=== PATIENT | female | born 1930 | race Caucasian/White ===

== ENCOUNTER 2016-12-27 15:26 | Observation (INO) | payer MEDICARE ==
[~2016-12-27] VITALS: Ht 162.6 cm; Wt 89.1 kg
[~2016-12-27 15:26] MED LIST: ALDACTONE25 MG PO; ALEVE220 MG PO; AMBIEN10 MG PO; BAYER CHEWABLE81 MG PO; CORDARONE200 MG PO; COZAAR100 MG; ELIQUIS2.5 MG PO; GLIMEPIRIDE4 MG PO; GLUCOPHAGE500 MG PO; LASIX20 MG PO; LASIX40 MG PO; LEVOTHROID50 MCG PO; LIPITOR10 MG PO; LOPRESSOR25 MG PO; MOBIC7.5 MG PO; NORVASC10 MG PO; NORVASC5 MG PO; OMNICEF300 MG PO; PACERONE200 MG PO; PLAVIX75 MG PO; SYNTHROID75 MCG PO
[2016-12-27 16:15] LABS: BASOPHILS 0.3 % (0-2); EOSINOPHILS 0.7 % (0-7); HEMATOCRIT 39.4 % (36.0-48.0); HEMOGLOBIN 12.3 g/dL (12-16); IMMATURE GRANULOCYTES 0.5 % (0-5); MCH 28.7 pg (26.0-34.0); MCHC 31.2 g/dL (31.0-37.0); MCV 92.1 fL (80.0-100.0); MEAN PLATELET VOLUME 10.1 fL (7.4-10.4); MONOCYTES 8.4 % (2-11); NEUTROPHILS 79.1 % (40-80); PLATELET COUNT 232 10x3/uL (130-400); RBC 4.28 10x6/uL (4.00-5.40); RDW 13.7 % (11.5-14.5); WBC 9.3 10x3/uL (4.8-10.8)
[2016-12-27 16:42] LABS: ALBUMIN 3.7 g/dL (3.4-5.0); ALKALINE PHOSPHATASE 61 U/L (46-116); ALT (SGPT) 16 U/L (10-68); BILIRUBIN - TOTAL 0.49 mg/dL (0.2-1.3); CALC OSMOLALITY 293 mosm/kg (275-300); CALCIUM 8.9 mg/dL (8.5-10.1); CARBON DIOXIDE 26.4 mmol/L (21.0-32.0); CHLORIDE - SERUM 107 mmol/L (98-107); CREATININE - SERUM 1.4 mg/dL (0.6-1.3); GLUCOSE 169 mg/dL (74-106); POTASSIUM - SERUM 5.1 mmol/L (3.5-5.1); PROTEIN - SERUM 6.6 g/dL (6.4-8.2); SODIUM 143 mmol/L (136-145); UREA NITROGEN 26 mg/dL (7-18); eGFR NON AFRICAN AMERICAN 38 mL/min (90-120)
[2016-12-27 16:54] LABS: CKMB 1.4 U/L (0.0-3.6); CREATINE KINASE 64 UL (21-215); PRO BNP 1609 pg/mL (0-450); TROPONIN-I < 0.017 ng/mL (0.000-0.060)
[2016-12-27 21:07] VITALS: BP 189/58
--- NOTE | 2016-12-27 22:27 | NUR ---
HOME MEDICATIONS REVIEWED. PT STATES NOT TAKING HS MEDS YET AND REQUESTING TO TAKE HER AMBIEN WELL. CALL TO DR GALINDO, DISTRIBUTION CENTER SUPERVISOR FOR DR DHALIWAL. NEW ORDERS RECEIVED AND ENTERED VIA CPOE. AWAITING HOUSE SUP TO BRING MEDS.
[2016-12-27 23:27] VITALS: BMI 30.9
--- NOTE | 2016-12-27 23:55 | NUR ---
PT RESTING QUIETLY WITH EYES CLOSED AND RESP EVEN UNLABORED. O2 4LPM NC. WILL CONT TO MONITOR.
[2016-12-28 01:38] VITALS: BP 159/44
[2016-12-28 05:32] VITALS: BP 135/64
[2016-12-28 08:00] VITALS: BP 123/47
[2016-12-28 12:00] VITALS: BP 150/46
[2016-12-28 14:19] VITALS: Ht 162.6 cm; Wt 89.1 kg
[2016-12-28 15:59] VITALS: BP 157/42
--- NOTE | 2016-12-28 20:32 | NUR ---
PT REFUSES GLUCOSE CHECKS, STATES HER FINGERS ARE VERY BRUISED ALREADY. EXPLAINED TO PT SHE IS TAKING STEROIDS IN HER IV AND THAT THIS WILL INCREASE HER GLUCOSE. PT STATES "THEN TAKE ME OFF". EXPLAINED TO PT THAT THE STEROIDS WERE HELPING HER BREATH EASIER. PT STATES "HONEY, I WILL BE 87 IN FEBRUARY. AT SOME POINT AND PROBABLY SOON, I WILL STOP BREATHING". I EXPLAINED TO PT THAT WE WOULD SKIP HER GLUCOSE CHECK TONIGHT AND WILL SEE HOW SHE IS RUNNING ON HER LAB DRAW IN THE MORNING. PT STATES "THEY ARE NOT DRAWING MY BLOOD IN THE MORNING AND I WILL BE GOING HOME IN THE MORNING". ACCU CHECK SKIPPED AT THIS TIME.
[2016-12-28 20:44] VITALS: BP 145/52
--- NOTE | 2016-12-29 00:14 | NUR ---
PT RESTING WELL, NO CHANGES NOTED IN ASSESSMENT. NO NEEDS VOICED. CALL LIGHT WITHIN REACH. WILL CONT TO MONITOR.
[2016-12-29 03:47] VITALS: BP 149/59
[2016-12-29 05:11] LABS: BASOPHILS 0 % (0-2); EOSINOPHILS 0 % (0-7); HEMATOCRIT 35.6 % (36.0-48.0); HEMOGLOBIN 11.4 g/dL (12-16); IMMATURE GRANULOCYTES 0.3 % (0-5); LYMPHOCYTES 7.4 % (15-50); MCH 28.9 pg (26.0-34.0); MEAN PLATELET VOLUME 10.5 fL (7.4-10.4); MONOCYTES 4.6 % (2-11); NEUTROPHILS 87.7 % (40-80); PLATELET COUNT 241 10x3/uL (130-400); RBC 3.95 10x6/uL (4.00-5.40); RDW 13.4 % (11.5-14.5); WBC 7.7 10x3/uL (4.8-10.8)
[2016-12-29 05:16] LABS: MCV 90.1 fL (80.0-100.0)
[2016-12-29 05:39] LABS: ALBUMIN 3.4 g/dL (3.4-5.0); ALKALINE PHOSPHATASE 57 U/L (46-116); ALT (SGPT) 13 U/L (10-68); BILIRUBIN - TOTAL 0.34 mg/dL (0.2-1.3); CALCIUM 8.8 mg/dL (8.5-10.1); CARBON DIOXIDE 25.9 mmol/L (21.0-32.0); CHLORIDE - SERUM 102 mmol/L (98-107); CKMB 1.2 U/L (0.0-3.6); CREATINE KINASE 59 UL (21-215); POTASSIUM - SERUM 4.6 mmol/L (3.5-5.1); PROTEIN - SERUM 6.7 g/dL (6.4-8.2); SODIUM 139 mmol/L (136-145)
[2016-12-29 05:49] LABS: CALC OSMOLALITY 296 mosm/kg (275-300); CREATININE - SERUM 2.2 mg/dL (0.6-1.3); GLUCOSE 229 mg/dL (74-106); TROPONIN-I < 0.017 ng/mL (0.000-0.060); UREA NITROGEN 45 mg/dL (7-18); eGFR NON AFRICAN AMERICAN 22 mL/min (90-120)
[2016-12-29 08:41] VITALS: BP 150/58
--- NOTE | 2016-12-29 11:42 | NUR ---
Rehab Prescreening Consult recieved and the patient was visited. She meets IRF criteria and is agreeable to participate in the required therapy. She will be accepted today if the physician agrees. Jessica Ernandez RN Clinical Liaison, Rehab
--- NOTE | 2016-12-29 11:44 | NUR ---
Called [facility] and spoke to Marcie. This patient is an active member since 08/07/16. A preauthorization for acute rehab is not required. [facility] is an in-network facility. Ref # [id number]. Jessica Ernandez RN Clinical Liaison, Rehab
[2016-12-29 12:54] VITALS: BP 142/55
[2016-12-29] MEDS ORDERED: VIBRAMYCIN 100100 MG PO (14:38)
[2016-12-29] MEDS ORDERED: IPRAT-ALBUT 0.5-3 ML UPD (14:39)
[2016-12-29] MEDS ORDERED: ELIQUIS5 MG PO (14:40)
[2016-12-29] MEDS ORDERED: AMBIEN5 MG PO ×2 (14:41→14:42)
[2016-12-29 16:20] VITALS: BP 153/47
[2016-12-29] MEDS ORDERED: FLORAJEN3 CAPS460 MG PO (16:43)
[2016-12-29] MEDS ORDERED: HUMALOG 30100 UNITS/ SC (16:43)
[2016-12-29] MEDS ORDERED: FLORASTOR250 MG PO (16:44)
[2016-12-29] MEDS ORDERED: STERAPRED 5MG 65 M1 PO (16:53)
--- NOTE | 2016-12-29 17:04 | NUR ---
OT NOTE: PT COMPLETED BUE AROM FOR INCREASED AX TOLERANCE. PT RUE HAS LIMITED AROM SECONDARY TO PAIN. PT COMPLETED BED MOB WITH SBA FOR SIDE ROLLING. THANK YOU, YELENA LAWS/Tony
--- NOTE | 2016-12-29 17:07 | NUR ---
Patient Name: NOEMI MORENO Admission Status: ER Accout number: [id number] Admission Date: 12-27-2016 : 1930 Admission Diagnosis: Attending: EZ Current LOS: 2 Anticipated DC Date: 12-29-2016 Planned Disposition: Inpatient Rehab Primary Insurance: [facility] PFFS PLANNED EXTERNAL PROVIDER: [facility] Discharge Planning Comments: * Is the patient Alert and Oriented? Yes 0 * How many steps to enter\exit or inside your home? 2 0 * PCP DR. DHALIWAL 0 * Pharmacy [facility] * Preadmission Environment Home Alone 0 * ADLs Partial Dependent 0 * Partial ADLs (Assistance needed) Medication Management 0 * Equipment Nebulizer Oxygen Rolling Walker 0 * Other Equipment HOME OXYGEN ONLY - IS NOT USING [facility] - MEDICAL EQUIPMENT PROVIDER 0 * List name and contact numbers for known caregivers / representatives who currently or will assist patient after discharge: DALIA MORENO, SON, * Community resources currently utilized None 0 * Please name any agencies selected above. NONE 0 * Additional services required to return to the preadmission environment? Yes * Can the patient safely return to the preadmission environment? Yes 0 * Has this patient been hospitalized within the prior 30 days at any hospital? No 0 CM MET WITH PT IN ROOM TO DISCUSS DISCHARGE PLANNING AND NEEDS. PT REPORTS LIVING AT HOME INDEPENDENTLY AND ALONE. PT'S SON LIVES CLOSEBY AND ASSISTS PT AT HOME IF NEEDED AND TAKES CARE OF ARRANGING PT'S MEDICATIONS IN HER PILL MINDER BOX. PT HAS ROLLING WALKER, HOME OXYGEN AND NEBULIZER FROM [facility]. PT DOES NOT USE HER HOME OXYGEN AT THIS TIME. PT HAS NO OUTSIDE SERVICES ASSISTING IN THE HOME. CM DISCUSSED AVAILABILITY OF HOME HEALTH, REHAB SERVICES AND MEDICAL EQUIPMENT. PT HAS TALKED WITH NATALY OF INPATIENT REHAB AND WANTS REHAB AT [facility] PRIOR TO GOING HOME. PT REPORTS HER SON WILL PICK HER UP FOR DISCHARGE HOME. CM SPOKE TO NATALY OF [facility], WHO WILL ACCEPT PT TODAY IF MEDICALLY STABLE FOR DISCHARGE. NOTIFY [facility] WHEN PT IS READY FOR DISCHARGE; INPATIENT REHAB WILL CALL FLOOR WHEN READY TO ACCEPT REPORT AND PT. Marketing Support Assistant: Williams Mcgrath
--- NOTE | 2016-12-29 18:28 | NUR ---
REPORT CALLED TO [facility]. ESCORTED TO REHAB BY W/C.
--- NOTE | 2016-12-30 13:26 | EC ---
PATIENT:NOEMI MORENO DATE OF SERVICE: 12/27/16 SEX: F MEDICAL RECORD: [id number] DATE OF : [birth year] LOCATION:D. D.211 AGE OF PATIENT: 86 ADMISSION DATE: 12/27/16 REFERRING PHYSICIAN: INTERPRETING PHYSICIAN: ADIEL DOSS M.D. ECHOCARDIOGRAM REPORT ECHO CHARGES 4 ECHO COMPLETE CLINICAL DIAGNOSIS: CHF ECHOCARDIOGRAPHIC MEASUREMENTS (adult normal given) AC root (d.<3.7cm) 3.5 LV Septum d (<1.2 cm> 1.6 Valve Excursion 1.9 LV Septum (systole) 2.2 Left Atria (s.<4.0cm> 4.0 LVPW d(<1.2cm) 1.4 RV (d.<2.3cm) 3.3 LVPW (sytole) 2.0 LV diastole(<5.6CM) 5.0 MV E-F(>70mm/sec) LV systole 2.5 LVOT Diameter 1.9 MV exc.(>10mm) Est.ejection fraction (50-75%) Pericardial Effusion N DOPPLER: LVIT A 66.0 E 89.0 LA RVSP 55.0 LVOT 148 AOP1/2T Asc. Ao 224 RVOT 74.0 RA PA 105 AV Gradient Peak 20.1 AV Mean 10.3 AV Area 1.7 MV Gradient Peak 7.2 MV Mean 2.1 MV Area COMMENTS: Grinding Wheel Facer: Davina KUNZOE Breakfast Hostess:Trevor Doss TAPE# PACS DATE OF SERVICE: 12/28/2016 INDICATION: Congestive heart failure. REFERRING PHYSICIAN: Padilla Bautista DO. DESCRIPTION: Left ventricle demonstrates left ventricular hypertrophy. No wall motion abnormalities noted. Estimated ejection fraction is 55%. Mitral valve is structurally normal. There is mild regurgitation seen. Left atrium is mildly dilated. The aortic valve is trileaflet. There is trivial insufficiency ECHOCARDIOGRAM REPORT [id number] NOEMI MORENO seen, but no evidence of stenosis. Right ventricle is mildly dilated. Tricuspid valve is structurally normal. There is mild regurgitation noted. Right ventricular systolic pressure is elevated at 55 mmHg. There is no pericardial effusion seen. IMPRESSION: 1. Left ventricular hypertrophy with ejection fraction of 55%. 2. Moderate mitral regurgitation. 3. Moderate tricuspid regurgitation with elevated ejection pressures. TRANSINT:[id number] Voice Confirmation ID: [id number] DOCUMENT ID: [id number] ADIEL DOSS M.D. at 1326 CC: [id number] DICTATION DATE: 12/28/16 152 LAB DIRECTOR: 12/29/16 0112 DIS IN 12/29/16 [facility] [address] [id number]
== END 2016-12-29 18:29 | disposition home or self-care (01) ==
LOC: D.ER 15:26 → D.M2 19:40 → OBSVTIME 19:40 → D.M2 19:40
PROVIDERS: Emergency Medicine; ADMIT Family Medicine
DX: I11.0 Hypertensive heart disease with heart failure (principal); I50.33 Acute on chronic diastolic (congestive) heart failure; J40 Bronchitis, not specified as acute or chronic; I48.2 Chronic atrial fibrillation

== ENCOUNTER 2016-12-29 16:26 | Inpatient (IN) | payer MEDICARE ==
[~2016-12-29] VITALS: Ht 162.6 cm; Wt 83.5 kg
[~2016-12-29 16:26] MED LIST changes: +AMBIEN5 MG PO; +ELIQUIS5 MG PO; +IPRAT-ALBUT 0.5-3 ML UPD; +VIBRAMYCIN 100100 MG PO
[2016-12-29] MEDS ORDERED: FLORAJEN3 CAPS460 MG PO (16:43)
[2016-12-29] MEDS ORDERED: HUMALOG 30100 UNITS/ SC (16:43)
[2016-12-29] MEDS ORDERED: FLORASTOR250 MG PO (16:44)
[2016-12-29] MEDS ORDERED: STERAPRED 5MG 65 M1 PO (16:53)
--- NOTE | 2016-12-29 20:00 | NUR ---
PT IN BED WITH HOB UP FOR COMFORT. VISITORS IN ROOM. PT HAS NO COMPLAINTS AT THIS TIME. BED IN LOWEST POSITION AND CALL LIGHT WITHIN REACH.
[2016-12-29 22:36] VITALS: BMI 31.6
--- NOTE | 2016-12-29 22:56 | NUR ---
ADMISSION ASSESSMENT COMPLETE. DENIES NEEDS. SR UP X3 WITH WATER AND CALL LIGHT IN REACH.
--- NOTE | 2016-12-29 23:15 | NUR ---
ASSESSMENT DONE BY BASIA REYES.
[2016-12-30 01:02] VITALS: BP 142/44
--- NOTE | 2016-12-30 02:53 | NUR ---
PT IN BED WITH HOB UP FOR COMFORT. EYES CLOSED. CHEST RISING AND FALLING. BED IN LOWEST POSITION AND CALL LIGHT WITHIN REACH.
[2016-12-30 07:12] LABS: BASOPHILS 0 % (0-2); EOSINOPHILS 0 % (0-7); HEMATOCRIT 34.6 % (36.0-48.0); HEMOGLOBIN 11.2 g/dL (12-16); IMMATURE GRANULOCYTES 0.5 % (0-5); LYMPHOCYTES 9.2 % (15-50); MCH 28.9 pg (26.0-34.0); MCHC 32.4 g/dL (31.0-37.0); MCV 89.4 fL (80.0-100.0); MEAN PLATELET VOLUME 10.4 fL (7.4-10.4); MONOCYTES 9.9 % (2-11); NEUTROPHILS 80.4 % (40-80); PLATELET COUNT 222 10x3/uL (130-400); RBC 3.87 10x6/uL (4.00-5.40); RDW 13.6 % (11.5-14.5)
[2016-12-30 07:19] LABS: WBC 10.1 10x3/uL (4.8-10.8)
[2016-12-30 07:31] LABS: ANION GAP 15.1 mmol/L (8-16); CALCIUM 8.6 mg/dL (8.5-10.1); CARBON DIOXIDE 26.3 mmol/L (21.0-32.0); CREATININE - SERUM 2.1 mg/dL (0.6-1.3); POTASSIUM - SERUM 4.4 mmol/L (3.5-5.1)
--- NOTE | 2016-12-30 07:45 | NUR ---
RESTING QUIETLY IN BED CALL LIGHT IN REACH
[2016-12-30 11:19] VITALS: BP 98/50
--- NOTE | 2016-12-30 12:51 | NUR ---
SITTING UP IN BED EATING LUNCH AND VISITING WITH VISITORS. DENIES NEEDS OR C/O. NO EDEMA NOTED TO EXTREMITIES. NOT WEARING OXYGEN AT PRESENT. DENIES INCREASED SOB.
[2016-12-30 15:19] VITALS: Ht 162.6 cm; Wt 83.5 kg
[2016-12-30 19:08] VITALS: BP 159/51
--- NOTE | 2016-12-30 19:20 | NUR ---
RESTING IN BED, EYES CLOSED.
--- NOTE | 2016-12-31 | NUR ---
PT LYING IN BED WITH HOB UP FOR COMFORT. EYES CLOSED. RESPIRATIONS EVEN AND UNLABORED. BED IN LOWEST POSITION AND CALL LIGHT WITHIN REACH.
--- NOTE | 2016-12-31 03:45 | NUR ---
PT IN BED WITH HOB UP FOR COMFORT. EYES CLOSED. CHEST RISING AND FALLING. BED IN LOWEST POSITION AND CALL LIGHT WITHIN REACH.
--- NOTE | 2016-12-31 12:17 | NUR ---
DOES NOT LIKE FSBS OR INSULIN SHOTS. C/O THEM BUT IS COOPERATIVE. DENIES INCREASED PAIN. THINKS THE PAIN IN SHOULDER IS FROM HER DOING SO MUCH KNITTING LATELY. FAMILY IS VISITING
--- NOTE | 2016-12-31 14:38 | NUR ---
JUST GOT BACK FROM THERAPY. LAYED DOWN AND BED AND STATED SHE WAS TIRED AND HAPPY TO REST. DENIES NEEDS. O2 IN PLACE.
[2016-12-31 15:49] VITALS: BP 110/56
[2016-12-31 19:00] VITALS: BP 154/51
--- NOTE | 2016-12-31 19:30 | NUR ---
PT SIT UP IN BED AND WATCH TV.
--- NOTE | 2017-01-01 00:11 | NUR ---
PT REST QUIETLY IN BED, EYE CLOSE, BED LOW, CALL LIGHT WITHIN REACH.
--- NOTE | 2017-01-01 02:20 | NUR ---
RESTING IN BED, EYES CLOSED. RESPIRING QUIETLY.
--- NOTE | 2017-01-01 08:34 | NUR ---
SITTING UP EATING BREAKFAST DENIES NEEDS CALL LIGHT IN REACH
[2017-01-01 12:56] VITALS: BP 91/44
--- NOTE | 2017-01-01 14:55 | NUR ---
RESTING QUIETLY IN BED. EYES CLOSED CALL LIGHT IN REACH
[2017-01-01 19:15] VITALS: BP 168/59
--- NOTE | 2017-01-01 19:40 | NUR ---
PT. IN BED WITH HOB UP FOR COMFORT AND IS WATCHING TV. ASSESSMENT COMPLETED. NO VOICED NEEDS AT THIS TIME AND SHE HAS HER CALL LIGHT WITHIN REACH.
--- NOTE | 2017-01-01 23:15 | NUR ---
PT. IN BED WITH HOB UP FOR COMFORT WITH EYES CLOSED AND RESP. EVEN. CALL LIGHT WITHIN REACH.
--- NOTE | 2017-01-02 03:11 | NUR ---
PT. IN BED LYING ON HER LEFT SIDE WITH EYES CLOSED AND RESP. EVEN. CALL LIGHT WITHIN REACH.
--- NOTE | 2017-01-02 06:00 | NUR ---
PT. SITTING ON THE SIDE OF HER BED CROCHETING. PT. DENIES ANY NEEDS AT THIS TIME AND HER CALL LIGHT IS WITHIN REACH.
[2017-01-02 07:40] LABS: BASOPHILS 0.1 % (0-2); EOSINOPHILS 0.1 % (0-7); HEMATOCRIT 37.8 % (36.0-48.0); HEMOGLOBIN 12.1 g/dL (12-16); IMMATURE GRANULOCYTES 0.6 % (0-5); MCH 28.5 pg (26.0-34.0); MCV 89.2 fL (80.0-100.0); MEAN PLATELET VOLUME 10.1 fL (7.4-10.4); MONOCYTES 9.7 % (2-11); NEUTROPHILS 73.5 % (40-80); PLATELET COUNT 238 10x3/uL (130-400); RBC 4.24 10x6/uL (4.00-5.40); RDW 13.7 % (11.5-14.5); WBC 11.3 10x3/uL (4.8-10.8)
[2017-01-02 08:09] LABS: ANION GAP 12.9 mmol/L (8-16); CALCIUM 9.2 mg/dL (8.5-10.1); CARBON DIOXIDE 26.6 mmol/L (21.0-32.0); CREATININE - SERUM 1.6 mg/dL (0.6-1.3); POTASSIUM - SERUM 4.5 mmol/L (3.5-5.1)
--- NOTE | 2017-01-02 08:18 | NUR ---
SITTING UP EATING BREAKFAST DENIES NEEDS CALL LIGHT IN REACH
[2017-01-02 12:23] VITALS: BP 136/55
--- NOTE | 2017-01-02 13:11 | NUR ---
RESTING IN BED. EYES CLOSED.
[2017-01-02 18:59] VITALS: BP 165/45
--- NOTE | 2017-01-02 19:30 | NUR ---
PT SIT UP IN BED AND WATCH TV.
--- NOTE | 2017-01-02 22:16 | NUR ---
PT REST QUIETLY IN BED, EYE CLOSE, BED LOW, CALL LIGHT WITHIN REACH.
--- NOTE | 2017-01-02 23:46 | NUR ---
PT RESTING ON SIDELYING POSITION, RESPIRATIONS REGULAR AND UNLABORED, NO S/S OF ACUTE DISTRESS.
--- NOTE | 2017-01-03 08:00 | NUR ---
SHIFT ASSMT COMPLETED.DENIES NEEDS.BREAKFAST GIVEN ON SIDE OF BED.MEAL SET-UP PROVIDED.
[2017-01-03 10:35] VITALS: BP 154/56
--- NOTE | 2017-01-03 12:00 | NUR ---
EATING LUNCH SITTING ON SIDE OF BED.CL IN REACH.
--- NOTE | 2017-01-03 16:00 | NUR ---
NAPPING.CL IN REACH.
--- NOTE | 2017-01-03 19:55 | NUR ---
PT. SITTING ON THE SIDE OF THE BED VISITING WITH HER SON AND LALITING. ASSESSMENT COMPLETED. NO VOICED NEEDS AT THIS TIME. SON ASKED QUESTIONS ABOUT TOMORROW'S NOON MEETING WITH THE MD AND THERAPIST AND ANSWERS WERE GIVEN TO HIS SATISFACTION. CALL LIGHT WITHIN REACH.
[2017-01-03 20:09] VITALS: BP 154/60
--- NOTE | 2017-01-03 23:20 | NUR ---
PT. IN BED WITH HOB UP SLIGHTLY FOR COMFORT AND LYING ON HER RIGHT SIDE. EYES ARE CLOSED AND RESP. EVEN. CALL LIGHT WITHIN REACH.
--- NOTE | 2017-01-04 03:03 | NUR ---
PT. IN BED LYING ON HER LEFT SIDE WITH EYES CLOSED AND RESP. EVEN. CALL LIGHT WITHIN REACH.
[2017-01-04 05:57] LABS: BASOPHILS 0.1 % (0-2); EOSINOPHILS 0.8 % (0-7); HEMATOCRIT 37.5 % (36.0-48.0); IMMATURE GRANULOCYTES 0.7 % (0-5); LYMPHOCYTES 9.5 % (15-50); MCH 28.7 pg (26.0-34.0); MCV 89.7 fL (80.0-100.0); MEAN PLATELET VOLUME 10.4 fL (7.4-10.4); MONOCYTES 12.5 % (2-11); NEUTROPHILS 76.4 % (40-80); PLATELET COUNT 238 10x3/uL (130-400); RBC 4.18 10x6/uL (4.00-5.40); RDW 13.8 % (11.5-14.5); WBC 9.6 10x3/uL (4.8-10.8)
[2017-01-04 06:13] LABS: ANION GAP 11.2 mmol/L (8-16); CALCIUM 8.9 mg/dL (8.5-10.1); CARBON DIOXIDE 27.6 mmol/L (21.0-32.0); CREATININE - SERUM 1.7 mg/dL (0.6-1.3)
[2017-01-04 06:14] LABS: POTASSIUM - SERUM 5.8 mmol/L (3.5-5.1)
--- NOTE | 2017-01-04 06:26 | NUR ---
PT. IN BED LYING ON HER LEFT SIDE WITH EYES CLOSED AND RESP. EVEN. PT. AWAKENS EASILY FOR MORNING MEDICATIONS AND FSBS. FSBS RESULTS 130 AND PT. IS VERY HAPPY SHE WON'T GET ANY S.S. INSULIN. NO VOICED NEEDS AT THIS TIME AND PT. HAS HER CALL LIGHT WITHIN REACH.
--- NOTE | 2017-01-04 08:00 | NUR ---
SITTING UP IN CHAIR,FINISHED BREAKFAST.VISITING WITH FAMILY.
[2017-01-04 09:29] VITALS: BP 117/45
--- NOTE | 2017-01-04 12:00 | NUR ---
SITTING UP IN WC EATING LUNCH.FAMILY AT BEDSIDE.
--- NOTE | 2017-01-04 12:20 | RHP ---
PATIENT: NOEMI MORENO MEDICAL RECORD: [id number] ACCOUNT: [id number] LOCATION:[facility] : 29 ADMISSION DATE: 12/29/16 REHABILITATION HISTORY AND PHYSICAL EXAMINATION POST ADMISSION PHYSICIAN EXAMINATION Post-admission Physical Examination and History and Physical DATE OF ADMISSION: 12/29/2016 ADMITTING DIAGNOSIS: Acute exacerbation of congestive heart failure,. HISTORY OF PRESENT ILLNESS: The patient is an 86-year-old female patient admitted to rehab with an acute exacerbation of CHF, she has got a history of CHF, AFib, coronary artery disease and diabetes, begin having shortness of breath around 2:00 on the date of admission. She has been lying flat and slept in her recliner. Her O2 at home is seldomly used, but she had actually used it. She has been having edema in both her lower extremities and the EKG showed chronic AFib. Chest x-ray showed mild central and peripheral pulmonary edema. Has also mild bilateral lower lobe airspace disease with small pleural effusion. She was admitted with acute CHF, fluid overload, acute bronchitis and reactive airways disease prior to this admit. She lives alone and was able to perform ADLs and ambulating around her house with a rolling walker. She is currently mod to max assist for ADLs and mobility for short distances due to extreme exertional dyspnea. She wants to be able to return home and go back to her prior level of functioning. COMORBIDITIES: In this patient include hypothyroidism, diabetes, hypertension, chronic AFib, acute on chronic systolic heart failure, bronchitis, CHF, small bilateral pleural effusions, dyspnea, hyperlipidemia, coronary artery disease, arthritis, and cataracts. PAST MEDICAL HISTORY: Significant for cataracts, she has got a history of diabetes and thyroid problems, hypertension, CHF, atrial fibrillation. PAST SURGICAL HISTORY: Includes back surgery, cataract surgery and appendectomy. ALLERGIES: NORPACE AND HYDROCODONE. CURRENT MEDICATIONS: Include prednisone, she is on a tapering Dosepak, Synthroid 75 mcg daily, ____ mg daily, DuoNeb updrafts, Amaryl 4 mg daily, furosemide 20 mg daily, Lipitor 10 mg daily. She is on insulin replacement protocol and dextrose and glucagon p.r.n. She is on Ambien 5 mg q.h.s. p.r.n., metoprolol 25 mg b.i.d., Vibramycin 100 mg b.i.d., Eliquis 2.5 mg b.i.d., amiodarone 200 mg at bedtime, polyethylene glycol 17 grams in 8 ounces of water daily. HABITS: No alcohol or tobacco use. FAMILY HISTORY: Noncontributory. SOCIAL HISTORY: The patient hopes to return back home and get back to her prior level of functioning. HISTORY AND PHYSICAL [id number] NOEMI MORENO REVIEW OF SYSTEMS: GENERAL: Does complain of weakness and fatigue. HEENT: Does complain of a little bit of cold, cough, and congestion. CARDIOVASCULAR: Denies any chest pain. LUNGS: Does complain of shortness of breath. PHYSICAL EXAMINATION: VITAL SIGNS: Stable, afebrile. GENERAL: A somewhat obese female in no acute distress, alert upon exam. HEENT: Normocephalic, atraumatic. Mucosa moist. NECK: Supple. No lymphadenopathy. LUNGS: Clear in the upper apices, but does have decreased breath sounds in the bases. CARDIOVASCULAR: Regular rate and rhythm. ABDOMEN: Benign. EXTREMITIES: Does have peripheral edema. NEUROLOGIC: Intact. LABORATORY DATA: Her white count is 10.1, H&H of 11 and 35 and platelet count of 222. Her sodium is 140, potassium 4.4, BUN and creatinine of 53 and 2.1 and blood sugar is noted to be 138. ASSESSMENT: This is an 86-year-old female patient admitted to rehab with a working diagnosis of congestive heart failure and multiple comorbidities. The patient has potential to make improvement. We instituted the following multidisciplinary therapies including to, but not limited to physical, occupational, respiratory, speech, nutritional services, prosthetics and orthotics. Given her complex condition and risk for more complications, rehabilitation services cannot be provided at a low level of care such as a senior care facility. PLAN: 1. Admit to [facility] rehab for intensive inpatient therapy to include the following disciplines: A. Physical therapy to improve gait, all transfer skills and bed mobility to a modified independent level. B. Occupational therapy to improve activities of daily living to a modified independent level. C. Case management to assist with discharge planning and placement options. D. Nutrition to assist with nutritional needs. E. Rehabilitation nursing to assist in monitoring the patient's underlying medical conditions and to assist with any type of bowel or bladder management. 2. The patient's current medication and medical care will be continued. 3. The patient will be placed on standard fall precautions. 4. We will monitor CHF closely. 5. Discuss this patient during care team staff meeting this week. TRANSINT:[id number] Voice Confirmation ID: [id number] DOCUMENT ID: [id number] PERCY notes whether there has been none or any medical/functional change since admission: - HISTORY AND PHYSICAL [id number] NOEMI MORENO attests patient continues to be appropriate for IRF: - BERTRAND NIEVES MD at 1220 CC: [id number] DICTATION DATE: 12/30/16 0852 WEIGH MACHINE OPERATOR: 12/30/16 1537 ADM IN [address] [place] [address]
--- NOTE | 2017-01-04 16:00 | NUR ---
RESTING QUIETLY.DENIES NEEDS.
--- NOTE | 2017-01-04 17:08 | NUR ---
CARE TEAM MEETING: FAMILY AND PATIENT ATTENDED MEETING. PLANS ARE FOR PATIENT TO RETURN HOME ON 01/06/17 WITH HOME HEALTH. WILL CONTINUE TO FOLLOW WITH PATIENT UNTIL DISCHARGED.
[2017-01-04 18:58] VITALS: BP 150/49
--- NOTE | 2017-01-04 19:40 | NUR ---
SON AT BEDSIDE WITH PT.
--- NOTE | 2017-01-05 00:31 | NUR ---
PT REST QUIETLY IN BED WITH EYE CLOSE, BED LOW, CALL LIGHT WITHIN REACH.
--- NOTE | 2017-01-05 02:50 | NUR ---
REMAINS IN BED, EYES CLOSED. RESTING QUIETLY.
[2017-01-05 05:56] LABS: ANION GAP 11.1 mmol/L (8-16); CALCIUM 8.6 mg/dL (8.5-10.1); CARBON DIOXIDE 29.6 mmol/L (21.0-32.0); CREATININE - SERUM 1.9 mg/dL (0.6-1.3)
[2017-01-05 05:57] LABS: POTASSIUM - SERUM 4.7 mmol/L (3.5-5.1)
--- NOTE | 2017-01-05 06:47 | NUR ---
RESTING QUIETLY IN BED CALL LIGHT IN REACH
--- NOTE | 2017-01-05 12:57 | NUR ---
SITTING IN CHAIR IN ROOM EATING LUNCH. TOOK ONE TESSALON DAISHA FOR DRY, NON PRODUCTIVE COUGH.
--- NOTE | 2017-01-05 17:56 | NUR ---
SITTING UP IN BED EAT IN SUPPER. DENIES NEEDS OR C/O. CALL LIGHT IN REACH
[2017-01-05 19:10] VITALS: BP 144/46
--- NOTE | 2017-01-05 20:20 | NUR ---
SIT UP IN BED AND DO CROSS WORDS PUZZLE.
--- NOTE | 2017-01-06 01:04 | NUR ---
REST QUIETLY IN BED WITH EYE CLOSE. BED LOW, CALL LIGHT WITHIN REACH.
[2017-01-06 07:57] VITALS: BP 141/42
--- NOTE | 2017-01-06 10:43 | NUR ---
D/C WITH ALL PERSONAL BELONGINGS. SON AT BEDSIDE WITH PT. WENT OVER D/C INSTRUCTIONS WITH PT AND SON. THEY DENY QUESTIONS. MEDS CALLED INTO [facility]. LEFT FLOOR IN W/C
--- NOTE | 2017-01-06 11:27 | NUR ---
PATIENT DISCHARGING HOME WITH FAMILY. [facility] WILL FOLLOW WITH PATIENT AT HOME.NO NEW DME NEEDED AT THIS TIME. DR. DHALIWAL 01/11/17 @ 1:00. PATIENT CHOICE FORM FOR HOME HEALTH AND [facility] FORM SIGNED, EXPLAINED AND FILED IN CHART. ORDERS HAVE BEEN FAXED WITH CONFORMATION RECIEVED
== END 2017-01-06 11:00 | disposition home health service (06) | DRG 292 ==
LOC: D.REHAB 16:26
PROVIDERS: ADMIT Emergency Medicine
DX: I50.23 Acute on chronic systolic (congestive) heart failure (principal); J90 Pleural effusion, not elsewhere classified; E03.9 Hypothyroidism, unspecified; E11.9 Type 2 diabetes mellitus without complications; I10 Essential (primary) hypertension; R06.09 Other forms of dyspnea; E78.5 Hyperlipidemia, unspecified; I25.10 Atherosclerotic heart disease of native coronary artery without angina pectoris; M19.90 Unspecified osteoarthritis, unspecified site; H26.9 Unspecified cataract; I48.2 Chronic atrial fibrillation

== ENCOUNTER 2018-11-11 08:13 | Inpatient (IN) | payer MEDICARE ==
[~2018-11-11] VITALS: Ht 162.6 cm; Wt 75.1 kg
[~2018-11-11 08:13] MED LIST changes: +FLORAJEN3 CAPS460 MG PO; +FLORASTOR250 MG PO; +HUMALOG 30100 UNITS/ SC; +STERAPRED 5MG 65 M1 PO
[2018-11-11 08:27] LABS: BASOPHILS 0.2 % (0-2); EOSINOPHILS 0.8 % (0-7); IMMATURE GRANULOCYTES 0.1 % (0-5); LYMPHOCYTES 21.2 % (15-50); MCH 28.8 pg (26.0-34.0); MCHC 30.8 g/dL (31.0-37.0); MCV 93.8 fL (80.0-100.0); MEAN PLATELET VOLUME 10.8 fL (7.4-10.4); MONOCYTES 11.1 % (2-11); NEUTROPHILS 66.6 % (40-80); PLATELET COUNT 239 10x3/uL (130-400); RBC 4.16 10x6/uL (4.00-5.40); RDW 13.9 % (11.5-14.5); WBC 9.4 10x3/uL (4.8-10.8)
[2018-11-11 08:36] LABS: APTT 30.8 SECONDS (22.8-39.4); INR 1.4 (0.85-1.17); PROTIME 16.6 SECONDS (11.6-15.0)
[2018-11-11 09:00] VITALS: BP 178/70
--- NOTE | 2018-11-11 09:00 | NUR ---
PATIENT ASSISTED TO RESTROOM, SHE BECAME INCREASINLY SOB DURING AMBULATION. INSTRUCED HER ON THE USE OF A BEDSIDE COMMODE AND IT WOULD BE BENEFICAL FOR HER COMFORT INSTEAD OF USING THE RESTROOM IN THE [place] WAY. SHE AGREED. PATIENT GIVEN A BEDSIDE CHAIR. SHE REPORTS SHE IS ABLE TO BREATH BETTER IF HER FEET ARE NO ELEVATED. CALL LIGHT WITHIN REACH AND FAMILY AT BEDSIDE. WILL CONTINUE TO MONITOR.
[2018-11-11 09:02] LABS: ALBUMIN 3.5 g/dL (3.4-5.0); ALKALINE PHOSPHATASE 54 U/L (46-116); ALT (SGPT) 15 U/L (10-68); BILIRUBIN - TOTAL 0.75 mg/dL (0.2-1.3); CALC OSMOLALITY 287 mosm/kg (275-300); CALCIUM 8.7 mg/dL (8.5-10.1); CARBON DIOXIDE 30.9 mmol/L (21.0-32.0); CHLORIDE - SERUM 101 mmol/L (98-107); CREATININE - SERUM 1.6 mg/dL (0.6-1.3); POTASSIUM - SERUM 4.6 mmol/L (3.5-5.1); PROTEIN - SERUM 6.7 g/dL (6.4-8.2); SODIUM 138 mmol/L (136-145); UREA NITROGEN 31 mg/dL (7-18); eGFR NON AFRICAN AMERICAN 32 mL/min (90-120)
[2018-11-11 09:05] LABS: GLUCOSE 189 mg/dL (74-106)
[2018-11-11 09:10] LABS: CKMB 1.8 U/L (0.0-3.6); CREATINE KINASE 82 UL (21-215); PRO BNP 5747 pg/mL (0-450); TROPONIN-I 0.034 ng/mL (0.000-0.060)
--- NOTE | 2018-11-11 09:14 | NUR ---
BEDSIDE COMMODE PLACED IN PATIENT ROOM
--- NOTE | 2018-11-11 09:43 | NUR ---
PATIENT SITTING IN CHAIR AT BEDSIDE. RESPIRATIONS ARE EVEN AND UNLABORED AT THIS TIME. SHE IS LESS ANXIOUS THEN EARLIER. FAMILY AT BEDSIDE. UPDATED ON PLAN OF CARE TO ADMIT. NO NEEDS NOTED. WILL CONTINUE TO MONITOR.
--- NOTE | 2018-11-11 10:09 | NUR ---
PATIENT ON BEDSIDE COMMODE. NO NEEDS NOTED. UPDATED ON PLAN OF CARE AND DELAYS IN CARE. WILL CONTINUE TO MONITOR.
[2018-11-11 11:28] VITALS: BP 166/70
[2018-11-11] MEDS ORDERED: LIPITOR10 MG PO (12:02)
[2018-11-11] MEDS ORDERED: LASIX40 MG PO (12:04)
[2018-11-11] MEDS ORDERED: PACERONE100 MG PO (12:05)
[2018-11-11] MEDS ORDERED: ZOLOFT25 MG PO (12:06)
[2018-11-11 12:10] VITALS: BP 178/69
[2018-11-11] MEDS ORDERED: ATIVAN0.5 MG PO (12:43)
[2018-11-11 14:52] VITALS: BP 164/63
[2018-11-11 15:52] LABS: CREATINE KINASE 85 UL (21-215); TROPONIN-I 0.029 ng/mL (0.000-0.060)
--- NOTE | 2018-11-11 16:09 | MORECARE ---
CASE MANAGEMENT DISCHARGE SUMMARY PATIENT: NOEMI MORENO S UNIT: [id number] ADM DATE: 11/11/18 AGE: 88 : 29 SEX: F ROOM/BED: D.8197 AUTHOR: DOROTEO DANG PHYSICIAN: REFERRING PHYSICIAN: AIRAM MARINO MD DATE OF SERVICE: 11/11/18 Discharge Plan Patient Name: NOEMI MORENO [facility] [facility] 1930 Planned Disposition: Anticipated Discharge Date: Discharge Date: Expected LOS: Initial Reviewer: [email or web address] Initial Review Date: 11/11/2018 Generated: 11/11/18 5:09 pm Patient Name: NOEMI MORENO Page 10818 at 1609 All edits/amendments must be made on the electronic document DICTATION DATE: 11/11/188 SATELLITE PROJECT SITE MONITOR: KEERTHI 11/11/188 RPT#: [id number] DC DATE: STATUS: ADM IN [facility] [address] [place] [address] END OF REPORT
--- NOTE | 2018-11-11 19:21 | NUR ---
INTRODUCED SELF TO PATIENT, RESP EVEN AND UNLBOARED. NO NEEDS AT THIS TIME.
[2018-11-11 20:30] VITALS: BP 154/49
[2018-11-11 21:51] LABS: CKMB 1.8 U/L (0.0-3.6); CREATINE KINASE 94 UL (21-215); TROPONIN-I 0.027 ng/mL (0.000-0.060)
[2018-11-12 00:54] VITALS: BP 168/69
[2018-11-12 02:16] VITALS: BP 154/49; BMI 28.6
--- NOTE | 2018-11-12 03:54 | NUR ---
NIECE AT BEDSIDE, PATIENT RESTING QUIETLY WITH EYES CLOSED. RESP EVEN AND UNLABORED. NO S/SX OF DISCOMFORT OR PAIN AT THIS TIME.
[2018-11-12 05:41] VITALS: BP 136/45
[2018-11-12 06:50] LABS: BASOPHILS 0.1 % (0-2); EOSINOPHILS 1.1 % (0-7); HEMATOCRIT 36.8 % (36.0-48.0); HEMOGLOBIN 11.3 g/dL (12-16); IMMATURE GRANULOCYTES 0.1 % (0-5); LYMPHOCYTES 13.3 % (15-50); MCH 28.5 pg (26.0-34.0); MCHC 30.7 g/dL (31.0-37.0); MCV 92.7 fL (80.0-100.0); MONOCYTES 13.2 % (2-11); NEUTROPHILS 72.2 % (40-80); PLATELET COUNT 209 10x3/uL (130-400); RBC 3.97 10x6/uL (4.00-5.40); RDW 13.9 % (11.5-14.5); WBC 7.3 10x3/uL (4.8-10.8)
[2018-11-12 07:27] LABS: ALBUMIN 2.9 g/dL (3.4-5.0); ALKALINE PHOSPHATASE 47 U/L (46-116); ALT (SGPT) 14 U/L (10-68); BILIRUBIN - TOTAL 0.78 mg/dL (0.2-1.3); C-REACTIVE PROTEIN 1.7 mg/dL (0.0-0.9); CALC OSMOLALITY 286 mosm/kg (275-300); CALCIUM 8.4 mg/dL (8.5-10.1); CARBON DIOXIDE 34.6 mmol/L (21.0-32.0); CHLORIDE - SERUM 102 mmol/L (98-107); CKMB 1.4 U/L (0.0-3.6); CREATINE KINASE 68 UL (21-215); CREATININE - SERUM 1.8 mg/dL (0.6-1.3); MAGNESIUM - SERUM 1.9 mg/dL (1.8-2.4); PROTEIN - SERUM 5.7 g/dL (6.4-8.2); SODIUM 141 mmol/L (136-145); TROPONIN-I 0.028 ng/mL (0.000-0.060); UREA NITROGEN 33 mg/dL (7-18); eGFR NON AFRICAN AMERICAN 28 mL/min (90-120)
[2018-11-12 07:29] LABS: GLUCOSE 83 mg/dL (74-106)
--- NOTE | 2018-11-12 07:41 | NUR ---
REPORT RECEIVED. WILL CONTINUE WITH POC. PT CURRENTLY SITTING ON EDGE OF BED. CALL LIGHT W/I REACH. FAMILY AT BEDSIDE. RR EVEN AND UNLABORED ON 3L 02. L.AC PIV IS SALINE LOCKED. PT DENIES ANY NEEDS AT THIS TIME. NO S/S OF DISTRESS NOTED. WILL CTM.
[2018-11-12 08:18] VITALS: BP 155/59
--- NOTE | 2018-11-12 12:46 | NUR ---
I have reviewed this patient and I concur with the Shift Assessment completed by the Licensed Practical Nurse today this shift.
[2018-11-12 13:40] VITALS: Ht 162.6 cm; Wt 75.1 kg
--- NOTE | 2018-11-12 15:25 | NUR ---
OT NOTE: PT FATIGUED EASILY AND SOB. PT REQUIRED MOD A WITH BED MOB TASKS. PT COMPLETED SIMPLE HYGIENE TASKS WITH MIN A WHILE SUPINE IN BED. PT REQUIRED FREQUENT REST BREAKS. THANK YOU, YELENA LAWS
--- NOTE | 2018-11-12 19:33 | NUR ---
INTRODUCED SELF TO PATIENT, PATIENT NIECE AT BEDSIDE. NO S/SX OF DISTRESS OR DISCOMFORT AT THIS TIME. RESP EVEN AND UNLABORED
[2018-11-12 21:33] VITALS: BP 169/50
[2018-11-13] VITALS (7 sets, daily range): BP systolic 135–164; BP diastolic 40–58
[2018-11-13 05:25] LABS: BASOPHILS 0.2 % (0-2); EOSINOPHILS 1.5 % (0-7); HEMATOCRIT 36.8 % (36.0-48.0); HEMOGLOBIN 11.1 g/dL (12-16); IMMATURE GRANULOCYTES 0.2 % (0-5); LYMPHOCYTES 18.4 % (15-50); MCH 28.5 pg (26.0-34.0); MCHC 30.2 g/dL (31.0-37.0); MCV 94.4 fL (80.0-100.0); MEAN PLATELET VOLUME 11.1 fL (7.4-10.4); MONOCYTES 14.5 % (2-11); NEUTROPHILS 65.2 % (40-80); PLATELET COUNT 220 10x3/uL (130-400); RDW 13.8 % (11.5-14.5); WBC 6.6 10x3/uL (4.8-10.8)
[2018-11-13 06:10] LABS: ALBUMIN 2.8 g/dL (3.4-5.0); ANION GAP 6.6 mmol/L (8-16); BILIRUBIN - TOTAL 0.59 mg/dL (0.2-1.3); CALCIUM 8.1 mg/dL (8.5-10.1); CARBON DIOXIDE 36.4 mmol/L (21.0-32.0); MAGNESIUM - SERUM 1.9 mg/dL (1.8-2.4); PROTEIN - SERUM 5.7 g/dL (6.4-8.2)
[2018-11-13 06:21] LABS: CREATININE - SERUM 2.3 mg/dL (0.6-1.3)
--- NOTE | 2018-11-13 13:13 | EC ---
PATIENT:NOEMI MORENO DATE OF SERVICE: 11/11/18 SEX: F MEDICAL RECORD: [id number] DATE OF : [birth year] LOCATION:D. D.212 AGE OF PATIENT: 88 ADMISSION DATE: 11/11/18 REFERRING PHYSICIAN: INTERPRETING PHYSICIAN: MAZIN DOUGLAS MD ECHOCARDIOGRAM REPORT ECHO CHARGES 4 ECHO COMPLETE Date: 11/11/18 CLINICAL DIAGNOSIS: EVALUATE CHF ECHOCARDIOGRAPHIC MEASUREMENTS (adult normal given) AC root (d.<3.7cm) 2.8 cm LV Septum d (<1.2 cm> 1.0 cm Valve Excursion 1.8 cm LV Septum (systole) 1.8 cm Left Atria (s.<4.0cm> 3.9 cm LVPW d(<1.2cm) 1.3 cm RV (d.<2.3cm) 2.9 cm LVPW (sytole) 2.1 cm LV diastole(<5.6CM) 5.1 cm MV E-F(>70mm/sec) cm LV systole 3.0 cm LVOT Diameter 1.7 cm MV exc.(>10mm) cm Est.ejection fraction (50-75%) % DOPPLER: LVIT cm/sec A 41.0 cm/sec E 91.0 cm/sec LA cm/sec RVSP 61.2 mmHg LVOT 131 cm/sec AOP1/2T m/s Asc. Ao 193 cm/sec RVOT 69.0 cm/sec RA cm/sec PA 89.0 cm/sec AV Gradient Peak 15.0 mmHg AV Mean 8.1 mmHg AV Area 1.5 cm MV Gradient Peak 5.6 mmHg MV Mean 1.7 mmHg MV Area cm COMMENTS: Ophthalmic Pathologist: 1 PARKER KUNZOE Ticket Agent: 3 Dr. Brooks TAPE# PACS Pericardial Effusion N DATE OF SERVICE: No LVH. LV internal dimension is normal. LV is mildly globally hypokinetic with mildly reduced EF, estimated EF 40% to 45%. Aortic valve sclerosis without stenosis by Doppler interrogation. Left atrium is normal at 3.9 cm. Mitral valve thickened with mitral annular calcification. Mild to moderate MR. Right-sided chamber grossly normal. Moderate TR. TRANSINT:[id number] Voice Confirmation ID: [id number] DOCUMENT ID: [id number] ECHOCARDIOGRAM REPORT [id number] NOEMI MORENO MAZIN DOUGLAS MD at 1313 CC: [id number] DICTATION DATE: 11/12/1833 SALES HOST: 11/12/18 1147 ADM IN [place] [id number] [place] [id number]
--- NOTE | 2018-11-13 15:27 | NUR ---
I have reviewed this patient and I concur with the Shift Assessment completed by the Licensed Practical Nurse today this shift.
--- NOTE | 2018-11-13 15:38 | NUR ---
OT NOTE: INITIAL ATTEMPT TO SEE PT IN AFTERNOON BUT SHE WAS IN A PROCEDURE; CHECKED AGAIN AND SHE HAD JUST RETURNED TO ROOM. PT ENCOURAGED TO PARTICIPATE IN THERAPY AND SHE WAS AGREEABLE TO DO SO. IN ROOM AMB WITH USE OF RW AND MIN ASSIST; TOILET TRANSFERS AND TOIILETING WITH MIN ASSIST. SINK HYGIENE WITH MIN ASSIST. BED MOB WITH MIN ASSIST. PT STATED THAT SHE WAS VERY FATIGUED, HOWEVER, NO SOB NOTED DURING THERAPY ACT THIS DATE. JIMMY SEBASTIAN, OTR/L
--- NOTE | 2018-11-13 16:50 | NUR ---
OT NOTE: PT COMPLETED BED MOB AND ADL MOB WITH MIN A. PT COMPLETED HYGIENE TASKS WITH MIN A. PT COMPLETED GROOMING TASK WITH SET UP. THANK YOU, YELENA LAWS
--- NOTE | 2018-11-13 21:21 | NUR ---
PATIENTS FAMILY MEMBER CAME OUT TO THIS NURSE, PATIENT WAS FEELING LIGHT HEADED AND SOB. PT WAS DX WITH PE TODAY, TOOK VITAL SIGNS 124/68, O2 @ 96 AFTER INCREASING TO 4L NS, NV 65, CONTROLLED AFIB ON MONITOR. WILL CONTINUE TO MONITOR, PATIENT STATES SOB HAS SUBSIDED SHE THINK SHE GOT UP TOO QUICKLY.
--- NOTE | 2018-11-13 23:30 | NUR ---
RECEIVED REPORT, ASSUMED CARE OF PATIENT. RESTING ON LEFT SIDE WITH EYES CLOSED. RR 16 EVEN U/L ON 02 AT 4L/NC. NO S/S OF DISTRESS OR DISCOMFORT. FAMILY MEMBER PRESENT IN ROOM. DENIES ANY NEEDS.
[2018-11-14 04:09] VITALS: BP 149/50
--- NOTE | 2018-11-14 06:00 | NUR ---
SITTING ON SIDE OF BED. DENIES ANY NEEDS OR DISCOMFORTS. FAMILY MEMBER PRESENT IN ROOM.
[2018-11-14 06:55] LABS: BASOPHILS 0.1 % (0-2); EOSINOPHILS 1.5 % (0-7); HEMATOCRIT 37.7 % (36.0-48.0); HEMOGLOBIN 11.5 g/dL (12-16); IMMATURE GRANULOCYTES 0.1 % (0-5); MCH 28.7 pg (26.0-34.0); MCHC 30.5 g/dL (31.0-37.0); MEAN PLATELET VOLUME 10.9 fL (7.4-10.4); MONOCYTES 12.4 % (2-11); NEUTROPHILS 62.9 % (40-80); PLATELET COUNT 248 10x3/uL (130-400); RBC 4.01 10x6/uL (4.00-5.40); RDW 13.8 % (11.5-14.5)
--- NOTE | 2018-11-14 07:30 | NUR ---
REPORT RECEIVED. WILL CONTINUE WITH POC. PT CURRENTLY LYING ON RIGHT SIDE. CALL LIGHT W/I REACH. PT IS AAO AND UP WITH ASSIST. RR EVEN AND UNLABORED ON 4L 02. L.FOR PIV IS SALINE LOCKED. PT DENIES ANY NEEDS AT THIS TIME. NO S/S OF DISTRESS NOTED. WILL CTM.
[2018-11-14 07:33] LABS: ANION GAP 8.9 mmol/L (8-16); BILIRUBIN - TOTAL 0.57 mg/dL (0.2-1.3); CALCIUM 8.2 mg/dL (8.5-10.1); CARBON DIOXIDE 34.6 mmol/L (21.0-32.0); CREATININE - SERUM 2.1 mg/dL (0.6-1.3); POTASSIUM - SERUM 4.5 mmol/L (3.5-5.1); PROTEIN - SERUM 6.1 g/dL (6.4-8.2)
[2018-11-14 09:45] VITALS: BP 157/54
--- NOTE | 2018-11-14 13:45 | NUR ---
I have reviewed this patient and I concur with the Shift Assessment completed by the Licensed Practical Nurse today this shift.
--- NOTE | 2018-11-14 14:24 | NUR ---
OT NOTE: PT PERFORMED VERY WELL TODAY. BED MOBILITY WITHOUT ASSIST TO L SIDE; MIN ASSIST TO R SIDE. TOILET TRANSFERS AND HYGIENE WITH CGA; SIMPLE GROOMING TASKS WITH SET UP/CGA; ABLE TO AMB IN ROOM WITH MULTISENSOR INTELLIGENCE OFFICER; ALSO WITH USE OF WALKER WITH CGA. AMB INTO HALLWAY WITH WALKER AND GAIT BELT AND 02 AT 3L WITH MIN ASSIST X 200 FT TO IMPROVE FUNCTIONAL ENDURANCE. PT VERY SOB UPON RETURN TO ROOM; REQUIRED APPROX 5 MIN TO RECOUP FROM WALK. JIMMY SEBASTIAN, OTR/L
--- NOTE | 2018-11-14 14:56 | NUR ---
Rehab Prescreening Consult recieved and the patient was visited. She meets criteria and is agreeable to participate in the required therapy. She will be accepted today if the physician agrees. Discussed with the CM Leola Clemens RN. Jessica Ernandez RN Clinical Liaison, Rehab
[2018-11-14 15:52] VITALS: BP 140/33
--- NOTE | 2018-11-14 15:59 | NUR ---
OT NOTE: PT COMPLETED BED MOB AND SIT TO STAND WITH CGA. PT COMPLETED FACE WASHING WITH SET UP. PT COMPLETED BUE AROM EXS. THANK YOU, YELENA LAWS
--- NOTE | 2018-11-14 16:40 | MORECARE ---
CASE MANAGEMENT DISCHARGE SUMMARY PATIENT: NOEMI MORENO UNIT: [id number] ADM DATE: 11/11/18 AGE: 88 : 29 SEX: F ROOM/BED: D.8770 AUTHOR: ALTON,DOC PHYSICIAN: REFERRING PHYSICIAN: AIRAM MARINO MD DATE OF SERVICE: 11/14/18 Discharge Plan Patient Name: NOEMI MORENO [facility] [facility] 1930 Planned Disposition: Inpatient Rehab Anticipated Discharge Date: 11/14/18 Discharge Date: Expected LOS: 3 Initial Reviewer: [email or web address] Initial Review Date: 11/11/2018 Generated: 11/14/18 5:39 pm Comments DCP- Discharge Planning Updated by [id number]: Williams Mcgrath on 11/14/18 3:[address] Patient Name: NOEMI MORENO Admission Status: ER Accout number: [id number] Admission Date: 11-11-2018 : 1930 Admission Diagnosis:SHORTNESS OF BREATH Attending: JAMILA, Current LOS: 3 Anticipated DC Date: 11-14-2018 Planned Disposition: Inpatient Rehab Primary Insurance: [employer] [facility] PLANNED EXTERNAL PROVIDER: [facility] INPATIENT REHAB Discharge Planning Comments: CM RECEIVED INPATIENT REHAB PRESCREEN ORDER, ATTEMPTED TO MEET WITH PT IN ROOM, NATALY OF INPATIENT REHAB MEETING WITH PT AND FAMILY IN ROOM. CM INFORMED BY ROMMEL OF INPATIENT REHAB THAT PT WANTS REHAB AT [place], THEY WILL ACCEPT TODAY. RN CM HOUSE NOTIFIED DOCTOR, DISCHARGE ORDER RECEIVED. CM MET WITH PT IN ROOM TO DISCUSS DISCHARGE PLANNING AND NEEDS. PT REPORTS LIVING AT HOME INDEPENDENTLY AND ALONE. PT HAS ROLLING WALKER, NEBULIZER, HOME AND PORTABLE OXYGEN FROM [facility]. PT HAS HOME HEALTH WITH [facility]. CM DISCUSSED AVAILABILITY OF HOME HEALTH, REHAB SERVICES AND MEDICAL EQUIPMENT. PT IS NOT THRILLED WITH THE IDEA OF INPATIENT REHAB, FAMILY WANTS HER TO GO AND PARTICIPATE. CM EXPLAINED THAT THE DOCTOR IS RECOMMENDING IT AND PLACED ORDER. PT STATES SHE IS FAMILIAR WITH [facility] AND IS AGREEABLE. FAMILY WILL TRANSPORT HOME AFTER REHAB IS COMPLETED. IMPORTANT MESSAGE FROM MEDICARE PROVIDED AND EXPLAINED. PT'S SON ARRIVED AND INFORMED CM THAT HE WANTS TO TALK TO THE DOCTOR PRIOR TO DISCHARGE TO REHAB TODAY. CM NOTIFIED DR. ESTRADA AND MAEGAN YBARRA. [facility] INPATIENT REHAB TO CONTACT MED 2 NURSE WITH ROOM NUMBER WHEN READY TO ACCEPT PT AND NURSE REPORT. Parking Manager: Williams Mcgrath DCPIA - Discharge Planning Initial Assessment Updated by [id number]: Williams Mcgrath on 11/14/18 4:32 pm * Is the patient Alert and Oriented? Yes * How many steps to enter\exit or inside your home? * PCP DR. DHALIWAL * Pharmacy [facility] * Preadmission Environment Home Alone * ADLs Independent * Equipment Nebulizer Oxygen Rolling Walker * Other Equipment HOME AND PORTABLE OXGYEN [facility] - PROVIDER * List name and contact numbers for known caregivers / representatives who currently or will assist patient after discharge: DALIA MORENO, YUDI, * Verbal permission to speak to the caregivers and representatives has been obtained from the patient. Yes * Community resources currently utilized Home Health * Please name any agencies selected above. [facility] * Additional services required to return to the preadmission environment? Yes * Can the patient safely return to the preadmission environment? Yes * Has this patient been hospitalized within the prior 30 days at any hospital? No Coverage Notice Reviewer: [id number] - Williams Mcgrath Notice Issued Date-Time: 11/14/2018 15:45 Notice Type: IM Discharge Notice Notice Delivered To: Patient Relationship to Patient: Senior Officer Name: Delivery Method: HAND - Hand Delivered Nathalie Days: Prior Verbal Notification: Recipient Understood Notice: Yes Recipient Signature: Yes Med Rec Note Co-signed by Attending: Coverage Notice Comment: Last DP export: 11/11/18 3:09 pm Patient Name: NOEMI MORENO Page [id number] at 1640 All edits/amendments must be made on the electronic document DICTATION DATE: 11/14/18 163 VISUAL STYLIST: KEERTHI 11/14/181638 RPT#: [id number] DC DATE: STATUS: ADM IN [facility] [address] [place] [address] END OF REPORT
--- NOTE | 2018-11-14 19:59 | NUR ---
EVENING ROUNDS COMPLETED. REPORT RECEIVED. PT SITTING UP IN BED WITH EYES OPEN, RR EVEN AND UNLABORED. OXYGEN AT 4 LITERS BY NASAL CANNULA. BED IN LOW POSITION. INTRODUCED SELF TO PT, AND LAWYER CRIMINAL. PT STATES SHE WILL NOT LEAVE TO REHAB UNTIL SHE HAS BEEN SEEN BY A DOCTOR. STATES SHE HAS CONCERNS SHE WOULD LIKE TO DISCUSS ABOUT HER BLOOD PRESSURE MEDICATION. PT DENIES FURTHER NEEDS AT THIS TIME. CALL LIGHT IN REACH. WILL CTM.
[2018-11-14 21:53] VITALS: BP 136/57
--- NOTE | 2018-11-14 22:09 | NUR ---
LEFT FOREARM PIV REMOVED AND BANDAGE APPLIED. MINIMAL BLEEDING NOTED.
--- NOTE | 2018-11-15 09:49 | MORECARE ---
CASE MANAGEMENT DISCHARGE SUMMARY PATIENT: NOEMI MORENO UNIT: [id number] ADM DATE: 11/11/18 AGE: 88 : 29 SEX: F ROOM/BED: D.4155 AUTHOR: ALTON,DOC PHYSICIAN: REFERRING PHYSICIAN: AIRAM MARINO MD DATE OF SERVICE: 11/15/18 Discharge Plan Patient Name: NOEMI MORENO [facility] [facility] 1930 Planned Disposition: Inpatient Rehab Anticipated Discharge Date: 11/14/18 Discharge Date: 11/14/2018 Expected LOS: 3 Initial Reviewer: [id number] Initial Review Date: 11/11/2018 Generated: 11/15/18 10:49 am Comments DCP- Discharge Planning Updated by [id number]: Williams Mcgrath on 11/14/18 3:[address] Patient Name: NOEMI MORENO Admission Status: ER Accout number: [id number] Admission Date: 11-11-2018 : 1930 Admission Diagnosis:SHORTNESS OF BREATH Attending: JAMILA, Current LOS: 3 Anticipated DC Date: 11-14-2018 Planned Disposition: Inpatient Rehab Primary Insurance: [employer] [facility] PLANNED EXTERNAL PROVIDER: [facility] INPATIENT REHAB Discharge Planning Comments: CM RECEIVED INPATIENT REHAB PRESCREEN ORDER, ATTEMPTED TO MEET WITH PT IN ROOM, NATALY OF INPATIENT REHAB MEETING WITH PT AND FAMILY IN ROOM. CM INFORMED BY ROMMEL OF INPATIENT REHAB THAT PT WANTS REHAB AT [facility], THEY WILL ACCEPT TODAY. RN CM HOUSE NOTIFIED DOCTOR, DISCHARGE ORDER RECEIVED. CM MET WITH PT IN ROOM TO DISCUSS DISCHARGE PLANNING AND NEEDS. PT REPORTS LIVING AT HOME INDEPENDENTLY AND ALONE. PT HAS ROLLING WALKER, NEBULIZER, HOME AND PORTABLE OXYGEN FROM [facility]. PT HAS HOME HEALTH WITH [facility]. CM DISCUSSED AVAILABILITY OF HOME HEALTH, REHAB SERVICES AND MEDICAL EQUIPMENT. PT IS NOT THRILLED WITH THE IDEA OF INPATIENT REHAB, FAMILY WANTS HER TO GO AND PARTICIPATE. CM EXPLAINED THAT THE DOCTOR IS RECOMMENDING IT AND PLACED ORDER. PT STATES SHE IS FAMILIAR WITH [facility] AND IS AGREEABLE. FAMILY WILL TRANSPORT HOME AFTER REHAB IS COMPLETED. IMPORTANT MESSAGE FROM MEDICARE PROVIDED AND EXPLAINED. PT'S SON ARRIVED AND INFORMED CM THAT HE WANTS TO TALK TO THE DOCTOR PRIOR TO DISCHARGE TO REHAB TODAY. CM NOTIFIED DR. ESTRADA AND MAEGAN YBARRA. [facility] INPATIENT REHAB TO CONTACT MED 2 NURSE WITH ROOM NUMBER WHEN READY TO ACCEPT PT AND NURSE REPORT. Tree Wrapper: Williams Colemanwell DCPIA - Discharge Planning Initial Assessment Updated by [id number]: Williams Mcgrath on 11/14/18 4:32 pm * Is the patient Alert and Oriented? Yes * How many steps to enter\exit or inside your home? * PCP DR. DHALIWAL * Pharmacy [facility] * Preadmission Environment Home Alone * ADLs Independent * Equipment Nebulizer Oxygen Rolling Walker * Other Equipment HOME AND PORTABLE OXGYEN [facility] - PROVIDER * List name and contact numbers for known caregivers / representatives who currently or will assist patient after discharge: DALIA MORENO, SON, * Verbal permission to speak to the caregivers and representatives has been obtained from the patient. Yes * Community resources currently utilized Home Health * Please name any agencies selected above. [facility] * Additional services required to return to the preadmission environment? Yes * Can the patient safely return to the preadmission environment? Yes * Has this patient been hospitalized within the prior 30 days at any hospital? No Coverage Notice Reviewer: [id number] - Williams Mcgrath Notice Issued Date-Time: 11/14/2018 15:45 Notice Type: IM Discharge Notice Notice Delivered To: Patient Relationship to Patient: Dictaphone Technician Name: Delivery Method: HAND - Hand Delivered Nathalie Days: Prior Verbal Notification: Recipient Understood Notice: Yes Recipient Signature: Yes Med Rec Note Co-signed by Attending: Coverage Notice Comment: Last DP export: 11/14/18 3:40 p Patient Name: NOEMI MORENO Page [phone] at 0949 All edits/amendments must be made on the electronic document DICTATION DATE: 11/15/18947 QUICK SKETCH ARTIST: KEERTHI 11/15/18947 RPT#: [id number] DC DATE:11/14/18 STATUS: DIS IN [facility] [address] [place] [address] END OF REPORT
== END 2018-11-14 22:26 | DRG 291 ==
LOC: D.ER 08:13 → D.EDHOLD 09:56 → D.M2 09:56
PROVIDERS: Emergency Medicine; ADMIT Family Medicine; ATTEND Family Medicine
DX: I11.0 Hypertensive heart disease with heart failure (principal); J96.21 Acute and chronic respiratory failure with hypoxia; J44.1 Chronic obstructive pulmonary disease with (acute) exacerbation; N17.9 Acute kidney failure, unspecified; I50.33 Acute on chronic diastolic (congestive) heart failure; I48.91 Unspecified atrial fibrillation; E03.9 Hypothyroidism, unspecified; E11.9 Type 2 diabetes mellitus without complications; I25.10 Atherosclerotic heart disease of native coronary artery without angina pectoris; G47.33 Obstructive sleep apnea (adult) (pediatric); F41.9 Anxiety disorder, unspecified; M54.9 Dorsalgia, unspecified; G89.29 Other chronic pain; I08.3 Combined rheumatic disorders of mitral, aortic and tricuspid valves

== ENCOUNTER 2018-11-14 17:18 | Inpatient (IN) | payer MEDICARE ==
[~2018-11-14] VITALS: Ht 162.6 cm; Wt 75.6 kg
[~2018-11-14 17:18] MED LIST changes: +ATIVAN0.5 MG PO; +PACERONE100 MG PO; +ZOLOFT25 MG PO
[2018-11-14 23:10] VITALS: BP 171/45; BMI 27.4
[2018-11-15 07:03] LABS: BASOPHILS 0.1 % (0-2); EOSINOPHILS 0.9 % (0-7); HEMATOCRIT 36.3 % (36.0-48.0); HEMOGLOBIN 11.1 g/dL (12-16); IMMATURE GRANULOCYTES 0.3 % (0-5); LYMPHOCYTES 18.2 % (15-50); MCH 28.3 pg (26.0-34.0); MCHC 30.6 g/dL (31.0-37.0); MCV 92.6 fL (80.0-100.0); MEAN PLATELET VOLUME 10.7 fL (7.4-10.4); MONOCYTES 8.9 % (2-11); NEUTROPHILS 71.6 % (40-80); PLATELET COUNT 229 10x3/uL (130-400); RBC 3.92 10x6/uL (4.00-5.40); RDW 13.7 % (11.5-14.5)
[2018-11-15 07:14] LABS: ANION GAP 6.3 mmol/L (8-16); CALCIUM 8.3 mg/dL (8.5-10.1); CARBON DIOXIDE 36.2 mmol/L (21.0-32.0); POTASSIUM - SERUM 4.5 mmol/L (3.5-5.1)
[2018-11-15 13:07] VITALS: Ht 162.6 cm; Wt 75.6 kg
[2018-11-15 13:12] VITALS: BP 142/44
[2018-11-15 19:00] VITALS: BP 138/32
[2018-11-16 06:40] LABS: ANION GAP 8.6 mmol/L (8-16); CALCIUM 8.3 mg/dL (8.5-10.1); CARBON DIOXIDE 33.9 mmol/L (21.0-32.0); CREATININE - SERUM 2.1 mg/dL (0.6-1.3); POTASSIUM - SERUM 4.5 mmol/L (3.5-5.1)
[2018-11-16 07:02] LABS: HEMATOCRIT 33.4 % (36.0-48.0); HEMOGLOBIN 10.5 g/dL (12-16); LYMPHOCYTES 18.5 % (15-50); MCH 29.2 pg (26.0-34.0); MCHC 31.4 g/dL (31.0-37.0); MEAN PLATELET VOLUME 10.7 fL (7.4-10.4); NEUTROPHILS 66.4 % (40-80); PLATELET COUNT 188 10x3/uL (130-400); RBC 3.59 10x6/uL (4.00-5.40); WBC 5.4 10x3/uL (4.8-10.8)
[2018-11-16 08:00] VITALS: BP 136/64
[2018-11-17 07:29] VITALS: BP 149/53
[2018-11-17 19:20] VITALS: BP 159/47
[2018-11-18 08:39] VITALS: BP 174/35
[2018-11-18 19:00] VITALS: BP 105/45
[2018-11-19 06:00] LABS: BASOPHILS 0.2 % (0-2); EOSINOPHILS 2.6 % (0-7); HEMATOCRIT 32.9 % (36.0-48.0); IMMATURE GRANULOCYTES 0.2 % (0-5); LYMPHOCYTES 18.6 % (15-50); MCH 28.4 pg (26.0-34.0); MCHC 30.4 g/dL (31.0-37.0); MCV 93.5 fL (80.0-100.0); MEAN PLATELET VOLUME 10.7 fL (7.4-10.4); MONOCYTES 12.2 % (2-11); NEUTROPHILS 66.2 % (40-80); PLATELET COUNT 198 10x3/uL (130-400); RBC 3.52 10x6/uL (4.00-5.40); RDW 14.1 % (11.5-14.5); WBC 5.8 10x3/uL (4.8-10.8)
[2018-11-19 06:18] LABS: ANION GAP 7.8 mmol/L (8-16); CALCIUM 8.5 mg/dL (8.5-10.1); CARBON DIOXIDE 34.9 mmol/L (21.0-32.0); CREATININE - SERUM 1.9 mg/dL (0.6-1.3); POTASSIUM - SERUM 5.7 mmol/L (3.5-5.1)
[2018-11-19 08:01] VITALS: BP 143/55
[2018-11-19 19:00] VITALS: BP 147/41
[2018-11-20 06:55] LABS: ANION GAP 9.8 mmol/L (8-16); CALCIUM 8.5 mg/dL (8.5-10.1); CARBON DIOXIDE 33.2 mmol/L (21.0-32.0); CREATININE - SERUM 1.6 mg/dL (0.6-1.3)
[2018-11-20 07:34] VITALS: BP 162/48
[2018-11-20 19:00] VITALS: BP 150/51
[2018-11-21 08:36] VITALS: BP 166/96
[2018-11-21 19:00] VITALS: BP 171/89
[2018-11-22 07:17] LABS: BASOPHILS 0.3 % (0-2); EOSINOPHILS 2.3 % (0-7); HEMATOCRIT 35.3 % (36.0-48.0); HEMOGLOBIN 10.9 g/dL (12-16); IMMATURE GRANULOCYTES 0.1 % (0-5); LYMPHOCYTES 18.5 % (15-50); MCH 28.3 pg (26.0-34.0); MCHC 30.9 g/dL (31.0-37.0); MCV 91.7 fL (80.0-100.0); MEAN PLATELET VOLUME 10.6 fL (7.4-10.4); MONOCYTES 12.8 % (2-11); PLATELET COUNT 228 10x3/uL (130-400); RBC 3.85 10x6/uL (4.00-5.40); RDW 13.8 % (11.5-14.5); WBC 6.8 10x3/uL (4.8-10.8)
[2018-11-22 07:25] LABS: CALCIUM 8.9 mg/dL (8.5-10.1); CARBON DIOXIDE 33.7 mmol/L (21.0-32.0); CREATININE - SERUM 1.8 mg/dL (0.6-1.3); POTASSIUM - SERUM 4.7 mmol/L (3.5-5.1)
[2018-11-22 08:00] VITALS: BP 174/56
--- NOTE | 2018-11-22 08:22 | RHP ---
PATIENT: NOEMI MORENO MEDICAL RECORD: [id number] ACCOUNT: [id number] LOCATION:[facility] : [birth year] ADMISSION DATE: 11/14/18 REHABILITATION HISTORY AND PHYSICAL EXAMINATION POST ADMISSION PHYSICIAN EXAMINATION POST ADMISSION PHYSICAL EXAMINATION AND HISTORY AND PHYSICAL DATE OF ADMISSION: 11/14/2018 ADMITTING DIAGNOSIS: Acute exacerbation of chronic obstructive pulmonary disease. HISTORY OF PRESENT ILLNESS: The patient admitted to inpatient rehab with acute exacerbation of COPD. She is an 88-year-old female patient with coronary artery disease, status post stenting, diabetes, hypothyroidism, congestive heart failure, atrial fib, chronic back pain, COPD with home O2 dependence, who presented to the Emergency Room with worsening dyspnea, dyspnea on exertion. She complained of not being able to lie down. Her daughter stated that her mom had a lot of anxiety. She was noted to have some lower extremity edema prior to admit. She was hospitalized in September for pneumonia. She had pmfqy-ju-nkgdtht respiratory failure with hypoxia, COPD with acute exacerbation. She was found to have a possible PE and is on Lovenox and Eliquis at this time. She is currently on telemetry. She is having increased amounts of supplemental O2. She is requiring IV Lasix. She has got weakness, dyspnea on exertion, shortness of breath, deconditioning, debility. She is high risk for falls and she has some self-care deficits. These are all barriers to her discharging home at this time. She lives at home alone, was moderately independent to independent with mobility and ADLs and wears oxygen at 2 liters mainly just at night. She is currently mod assist to max assist for mobility and set up for max assist for ADLs. She and her daughter would like her to return home at her prior level of functioning or better after acute inpatient rehab stay. Comorbidities in this patient include hypothyroidism, hypertension, chronic atrial fib, cjtbt-ys-yicldxv diastolic heart failure, vrlpc-ql-hrmakcs respiratory failure, obstructive sleep apnea, pulmonary vascular congestion, smlt-ig-ltdlpoie mitral regurg, pulmonary embolism, moderate tricuspid regurg, acute kidney injury, coronary artery disease, anxiety, dyspnea, dyspnea on exertion, home O2 dependence. PAST MEDICAL HISTORY: Significant for COPD. Glasses. She is hard of hearing. She has diabetes, thyroid problems, hypertension, CHF, atrial fib, home O2 dependence, chronic bronchitis. She has had shingles 3 times, anxiety, arthritis, chronic back pain, and nephrolithiasis. PAST SURGICAL HISTORY: Please see previous charts. ALLERGIES: NORPACE. SHE IS ALSO ALLERGIC TO NORCO. CURRENT MEDICATIONS: Include albuterol updrafts t.i.d. p.r.n., Zoloft 25 mg b.i.d., Lopressor 25 mg b.i.d., Synthroid 75 mcg daily, Amaryl 4 mg daily, furosemide 40 mg daily, Lipitor 5 mg at bedtime, Eliquis 2.5 mg b.i.d., amiodarone 100 mg daily, zolpidem 5 mg at bedtime p.r.n., and lorazepam 0.5 mg b.i.d. HABITS: No current alcohol or tobacco use. HISTORY AND PHYSICAL [id number] NOEMI MORENO FAMILY HISTORY: Noncontributory. SOCIAL HISTORY: The patient hopes to return back home. Once again, she does live by herself. REVIEW OF SYSTEMS: GENERAL: Does complain of weakness and fatigue. HEENT: Denies cold, cough, or congestion. CARDIOVASCULAR: Denies any chest pain at this time. LUNGS: Does complain of shortness of breath. PHYSICAL EXAMINATION: VITAL SIGNS: Stable. She is afebrile. Her pulse is somewhat low at 57 today. GENERAL: A well-developed, somewhat obese female, in no acute distress upon exam. HEENT: Normocephalic and atraumatic. Mucosa moist. NECK: Supple. No lymphadenopathy. LUNGS: Clear in upper marie, but she does have decreased breath sounds in the bases. CARDIOVASCULAR: Irregular rate and rhythm. She does have a noted murmur. ABDOMEN: Benign. No guarding. No rebound. Positive bowel sounds times 4. EXTREMITIES: She does have some peripheral edema. NEUROLOGIC: She does have noted weakness, especially with trying to get up from bed to the wheelchair. LABORATORY DATA: White count 7000, H&H of 11 and 36, and platelet count is 229. Her sodium is 142, potassium 4.5, BUN and creatinine of 39 and 2.0, and blood sugar is noted to be 154. ASSESSMENT: This is an 88-year-old female patient admitted to the rehab with a working diagnosis of acute exacerbation of chronic obstructive pulmonary disease, complicated by atrial fibrillation and coronary artery disease. The patient has potential to make improvement. We will institute the following multidisciplinary therapies including, but not limited to, physical, occupational, respiratory, speech, nutritional services, prosthetics, and orthotics. Given her complex medical condition and risk for more complications, rehabilitation services cannot be provided at a lower level of care such as a skilled nurse facility. PLAN: 1. Admit to [facility] for inpatient therapy to include the following disciplines; A. Physical therapy to improve gait, all transfer skills, and bed mobility to modified independent level. B. Occupational therapy to improve activities of daily living to a modified independent level. C. Case management to assist with discharge planning and placement options. D. Nutrition to assist with nutritional needs. E. Rehabilitation nursing to assist in monitoring the patient's underlying medical conditions and to assist with any type of bowel or bladder management. 2. The patient's current medications and medical care will be continued. 3. The patient will be placed on standard fall precautions. 4. The patient's estimated length of stay is approximately 7-10 days. 5. We will discuss this patient during care team staff meeting this week. We HISTORY AND PHYSICAL [id number] NOEMI MORENO will continue on home medications. Watch her weight closely and any worsening signs of CHF. Continue on breathing treatments and titrate on O2 if possible. TRANSINT:[id number] Voice Confirmation ID: [id number] DOCUMENT ID: [id number] PERCY notes whether there has been none or any medical/functional change since admission: - No change since pre-admission screen. PERCY attests patient continues to be appropriate for IRF: - Continues to be appropriate. MALVIN NIEVES MD at 0822 CC: [id number] DICTATION DATE: 11/15/18 0852 GENERAL HELPER: 11/15/18 0927 ADM IN [facility] [address] [place] [address]
[2018-11-22 19:48] VITALS: BP 169/55
[2018-11-23 08:14] VITALS: BP 155/52
== END 2018-11-23 10:32 | disposition home health service (06) | DRG 190 ==
LOC: D.REHAB 17:18
PROVIDERS: ADMIT Emergency Medicine; ATTEND Emergency Medicine
DX: J44.1 Chronic obstructive pulmonary disease with (acute) exacerbation (principal); I50.33 Acute on chronic diastolic (congestive) heart failure; J96.21 Acute and chronic respiratory failure with hypoxia; I26.99 Other pulmonary embolism without acute cor pulmonale; N17.9 Acute kidney failure, unspecified; I10 Essential (primary) hypertension; I48.2 Chronic atrial fibrillation; E11.9 Type 2 diabetes mellitus without complications; G47.33 Obstructive sleep apnea (adult) (pediatric); F41.9 Anxiety disorder, unspecified; R06.00 Dyspnea, unspecified; I25.10 Atherosclerotic heart disease of native coronary artery without angina pectoris; I34.0 Nonrheumatic mitral (valve) insufficiency; I07.1 Rheumatic tricuspid insufficiency; E03.9 Hypothyroidism, unspecified

== ENCOUNTER → 2018-12-04 11:14 | Outpatient (CLI) | payer MEDICARE ==
[2018-12-04 15:07] LABS: CALCIUM 8.3 mg/dL (8.5-10.1); CARBON DIOXIDE 30.7 mmol/L (21.0-32.0); CREATININE - SERUM 1.9 mg/dL (0.6-1.3); POTASSIUM - SERUM 4.7 mmol/L (3.5-5.1)
== END | disposition home or self-care (01) ==
LOC: D.LABREF 11:14
PROVIDERS: Family Medicine
DX: R60.9 Edema, unspecified (principal)

== ENCOUNTER → 2019-01-08 13:19 | Outpatient (CLI) | payer MEDICARE ==
[2018-11-15 13:07] VITALS: BMI 27.8
[2019-01-08 15:51] LABS: ANION GAP 13.6 mmol/L (8-16); CALCIUM 8.3 mg/dL (8.5-10.1); CREATININE - SERUM 1.8 mg/dL (0.6-1.3); POTASSIUM - SERUM 4.6 mmol/L (3.5-5.1)
== END | disposition home or self-care (01) ==
LOC: D.LABREF 13:19
PROVIDERS: ATTEND Family Medicine
DX: J44.1 Chronic obstructive pulmonary disease with (acute) exacerbation (principal); E11.9 Type 2 diabetes mellitus without complications; I26.99 Other pulmonary embolism without acute cor pulmonale